=== PATIENT | female | born 1990 | race Caucasian/White ===

== ENCOUNTER 2020-03-01 06:02 | Emergency (ER) | payer MEDICAID ==
[~2020-03-01] VITALS: Ht 162.6 cm; Wt 49.9 kg
[2020-03-01 06:30] VITALS: BP 97/65
--- NOTE | 2020-03-01 06:44 | Emergency Room Report ---
History of Present Illness General Chief Complaint: Abdominal Pain Source: Patient Present Illness HPI Disclaimer: Please note that this report is being documented using [employer] technology. This can lead to erroneous entry secondary to incorrect interpretation by the dictating instrument. HPI: 30-year-old female presents for evaluation abdominal pain vomiting and diarrhea. [place] ill all day yesterday with fatigue and decreased appetite. Approximately 11 PM yesterday evening had episode of nonbloody nonbilious emesis and several loose stools. Had abdominal cramping and sweats throughout the night. Last vomiting and diarrhea was approximately 4 AM. Has not taken any medication prior to arrival. Denies fever or chills. Denies recent sick contacts. Has been cooking her own food and denies any recent travel. Currently with mild upper abdominal cramping 10 and nonradiating. 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 EOMI. Cardiovascular: RRR. S1 and S2 normal. No murmur appreciated Resp: Normal work of breathing. No cough, wheezing or crackles appreciated Abdomen: Abdomen is soft, nondistended. Mild tenderness in the epigastrium but no significant tenderness in the left upper quadrant. Negative Hughes's. No periumbilical or right lower quadrant tenderness. Negative rebound. No masses. Skin: Intact. No abrasions, laceration or rash over the exposed skin MSK: Normal tone and bulk. Moving all extremities. No obvious deformity. Neuro: Awake and alert. Mentating appropriately. Medical Decision Making Diagnostic Impression: Primary Impression: Abdominal pain Additional Impression: Gastroenteritis ER Course Is a well-appearing 30-year-old female presenting for evaluation of vomiting and diarrhea of 1 day duration. Differential includes was not limited to gastritis, gastroenteritis, enterocolitis, food poisoning, pancreatitis, cholecystitis, nephrolithiasis, pyelonephritis, UTI, STI. Patient received IV fluids, antiemetics, antacids. Labs are returned within normal limits. No evidence of acute urinary tract infection, pancreatitis, cholecystitis or other significant pathology. Her abdomen remains soft, no peritoneal signs. Likely a gastroenteritis which should resolve in the next few days. She will be discharged home with continued antiemetics and antacids. Discussed reasons to return to the emergency department need to follow-up with PMD. She is stable for outpatient follow-up. She understands and agrees with the treatment plan. Laboratory Tests Test 03/01/20 06:30 White Blood Count 6.7 K/UL (4.8-10.8) Red Blood Count 4.33 M/UL (4.20-5.40) Hemoglobin 14.2 G/DL (12.0-16.0) Hematocrit 44.4 % (37.0-47.0) Mean Corpuscular Volume 103 FL (80-99) H Mean Corpuscular Hemoglobin 32.9 PG (27.0-31.0) H Mean Corpuscular Hemoglobin Concent 32.1 G/DL (32.0-36.0) Red Cell Distribution Width 12.5 % (11.6-14.8) Platelet Count 183 K/UL (150-450) Mean Platelet Volume 10.2 FL (6.5-10.1) H Neutrophils (%) (Auto) % (45.0-75.0) Lymphocytes (%) (Auto) % (20.0-45.0) Monocytes (%) (Auto) % (1.0-10.0) Eosinophils (%) (Auto) % (0.0-3.0) Basophils (%) (Auto) % (0.0-2.0) Differential Total Cells Counted 100 Neutrophils % (Manual) 88 % (45-75) H Lymphocytes % (Manual) 8 % (20-45) L Monocytes % (Manual) 3 % (1-10) Eosinophils % (Manual) 0 % (0-3) Basophils % (Manual) 0 % (0-2) Band Neutrophils 1 % (0-8) Platelet Estimate Adequate Platelet Morphology Normal Red Blood Cell Morphology Normal Urine Color Yellow Urine Appearance Clear Urine pH 6.5 (4.5-8.0) Urine Specific [place]ora 1.010 (1.005-1.035) Urine Protein Negative (NEGATIVE) Urine Glucose (UA) Negative (NEGATIVE) Urine Ketones Negative (NEGATIVE) Urine Blood Negative (NEGATIVE) Urine Nitrite Negative (NEGATIVE) Urine Bilirubin Negative (NEGATIVE) Urine Urobilinogen 1 MG/DL (0.0-1.0) H Urine Leukocyte Esterase 1+ (NEGATIVE) H Urine RBC 0-2 /HPF (0 - 2) Urine WBC 0-2 /HPF (0 - 2) Urine Squamous Epithelial Cells Few /LPF (NONE/OCC) Urine Bacteria Few /HPF (NONE) Urine Mucus Moderate /LPF (NONE/OCC) H Urine HCG, Qualitative Negative (NEGATIVE) Sodium Level 136 MMOL/L (136-145) Potassium Level 4.2 MMOL/L (3.5-5.1) Chloride Level 102 MMOL/L (98-107) Carbon Dioxide Level 27 MMOL/L (21-32) Anion Gap 7 mmol/L (5-15) Blood Urea Nitrogen 13 mg/dL (7-18) Creatinine 0.9 MG/DL (0.55-1.30) Estimated Glomerular Filtration Rate > 60 mL/min (>60) Glucose Level 103 MG/DL (74-106) Calcium Level 8.7 MG/DL (8.5-10.1) Total Bilirubin 1.0 MG/DL (0.2-1.0) Aspartate Amino Transferase (AST) 25 U/L (15-37) Alanine Aminotransferase (ALT) 28 U/L (12-78) Alkaline Phosphatase 46 U/L (46-116) Total Protein Pending Albumin 4.1 G/DL (3.4-5.0) Globulin Pending Lipase 82 U/L (73-393) Last Vital Signs Date Time Temp Pulse Resp B/P (MAP) Pulse Ox O2 Delivery O2 Flow Rate FiO2 03/01/20 06:18 98.4 88 18 97/65 (76) 96 Room Air Disposition: HOME, SELF-CARE Condition: Stable Scripts Famotidine* (Pepcid 20mg tablet*) 20 Mg Tablet 20 MG ORAL DAILY, #30 TAB 0 Refills Prov: Edilberto You MD 6/17/20 Ondansetron Odt* (ZOFRAN ODT*) 4 Mg Tab.rapdis 4 MG BC EVERY 6 HOURS PRN for Nausea & Vomiting, #10 TAB 0 Refills Prov: Edilberto You MD 03/01/20 Edilberto You MD Mar 01, 2020 06:44
[2020-03-01 06:54] LABS: HEMATOCRIT 44.4 % (37.0-47.0); HEMOGLOBIN 14.2 G/DL (12.0-16.0); MEAN CORPUSCULAR VOLUME 103 FL (80-99); PLATELET COUNT 183 K/UL (150-450); RED BLOOD COUNT 4.33 M/UL (4.20-5.40); RED CELL DISTRIBUTION WIDTH 12.5 % (11.6-14.8); WHITE BLOOD COUNT 6.7 K/UL (4.8-10.8)
[2020-03-01 07:00] LABS: APPEARANCE,URINE CLEAR; BILIRUBIN, URINE NEGATIVE (NEGATIVE); GLUCOSE, URINE (UA) NEGATIVE (NEGATIVE); KETONES,URINE NEGATIVE (NEGATIVE); LEUKOCYTE ESTERASE ,URINE 1+ (NEGATIVE); NITRITE,URINE NEGATIVE (NEGATIVE); PH,URINE 6.5 (4.5-8.0); PROTEIN,URINE NEGATIVE (NEGATIVE); UROBILINOGEN,URINE 1 MG/DL (0.0-1.0)
[2020-03-01 07:06] LABS: ANION GAP 7 mmol/L (5-15); BLOOD UREA NITROGEN 13 mg/dL (7-18); CALCIUM 8.7 MG/DL (8.5-10.1); CARBON DIOXIDE 27 MMOL/L (21-32); CHLORIDE 102 MMOL/L (98-107); COLOR,URINE YELLOW; CREATININE 0.9 MG/DL (0.55-1.30); POTASSIUM 4.2 MMOL/L (3.5-5.1); SODIUM 136 MMOL/L (136-145)
[2020-03-01] MEDS ORDERED: ONDANSETRON ODT4 MG BC (08:06)
[2020-03-01] MEDS ORDERED: FAMOTIDINE20 MG ORAL (08:06)
[2020-03-01 08:08] LABS: ALANINE AMINOTRANSFERASE 28 U/L (12-78); ALBUMIN 4.1 G/DL (3.4-5.0); ALKALINE PHOSPHATASE 46 U/L (46-116)
[2020-03-01 08:18] LABS: ASPARTATE AMINO TRANSFERASE 25 U/L (15-37)
[2020-03-01 08:46] VITALS: BP 105/69
== END 2020-03-01 08:50 | disposition home or self-care (01) ==
LOC: EMR 06:40
DX: K52.9 Noninfective gastroenteritis and colitis, unspecified (principal); Z88.2 Allergy status to sulfonamides
CPT/HCPCS: 36415; S0028; 80053; 81003; 81025; 83690; 85007; 85025; 96361; 96374; 96375; 99284; J2405; J7030